=== PATIENT | female | born 1965 | race Caucasian/White ===

== ENCOUNTER 2022-05-21 05:40 | Inpatient (IN) ==
--- NOTE | 2022-05-03 15:53 | PAT Medication Instructions ---
Medication Instructions Date of Service May 03, 2022 Home Medications biotin 1 mg tablet 1 mg PO QAM lisinopril 20 mg tablet 20 mg PO HS DO NOT take the morning of surgery biotin 1 mg tablet 1 mg PO QAM Take evening before surgery lisinopril 20 mg tablet 20 mg PO HS Other Notes If you have any questions please call us at [phone] or [phone] or [phone] or [phone]
--- NOTE | 2022-05-06 15:04 | Anesthesiology Consultation ---
Date of Service May 06, 2022 Assessment & Plan (1) Encounter for pre-operative examination: Chart Review Chart Review: Acceptable Risk for Surgery and Patient seen in Pre Admission Testing Teaching & Discussion Pre-Anesthesia Teaching/Discussion Notes: Instructed NPO after midnight before surgery, except medications with 15 cc of water. Medication instructions provided according to the PAT guidelines. History Surgery Operation Date: 05/21/22 11:15 Proposed Procedures p Total Abdominal Hysterectomy, Bilateral Salpingo-Oophorectomy - Rufus Garcia MD Height/Weight Height: 5 ft 6 in Weight: 130.5 kg Allergies Allergy/AdvReac Type Severity Reaction Status Date / Time No Known Allergies Allergy Verified 05/03/22 08:10 Medications Home Medications Medication Instructions Recorded Confirmed Last Taken biotin 1 mg tablet 1 mg PO QAM 03/03/22 05/03/22 03/18/22 05:00 lisinopril 20 mg tablet 20 mg PO HS 03/03/22 05/03/22 03/18/22 17:30 Past Medical History Medical History (Updated 05/06/22 @ 15:30 by Suha Epps PA-C) History of blood transfusion 1993 History of COVID-19 07/2021- body aches, loss of taste of small; no hospitalization, no current issues Hypertension controlled, stable per pt Obesity Patient denies h/o stroke, seizures, heart attack, heart failure, DM, or blood clots. Exercise / Class Metabolic Activity III < 4 Walking/Shop/Light housework (denies CP or SOB with usual activities) Past Family History Family History Other No family history of adverse response to anesthesia Past Surgical History Surgical History Hx of colonoscopy Hx of dilation and curettage Hx of tooth extraction Hx of tubal ligation Hx of wisdom tooth extraction S/P cholecystectomy Past Anesthesia History No Hx of Anesthesia Complications and Other (sister slow to wake after anesthesia) History of PONV No Hx of PONV and Hx of Motion Sickness Social History Smoking Status: Never smoker Do You Dip or Chew Tobacco: No Hx Alcohol Use: No Hx Substance Use: No substance use type: does not use Review of Systems Snoring and witnessed apneas, denies testing. Patient denies chest pain, shortness of breath, dyspnea on exertion, reflux, fever, chills, cough, wheezing, or palpitations. Physical Exam Vital Signs Vitals BP 105/64 P 79 TEMP 98.1 SP02 99% on RA RESP 18 Physical Full cervical extension range of motion without pain TMD 3.5 finger breaths Mallampati Score 3 Dentition: intact, denies chipped or loose teeth, caps/crowns, implants or bridges Lungs: normal respiratory effort. Clear throughout to auscultation, no adventitious breath sounds Cardiac: regular rate and rhythm, no murmurs noted Carotid arteries: negative bruit bilat Lab Results Anesthesia Preop Results Results Anesthesia Widget: WBC 8.52 K/ul (4.8-10.8) 05/06/22 Hgb 13.5 g/dl (12.0-16.0) 05/06/22 Hct 39.6 % (34.1-44.9) 05/06/22 Plt 275 K/uL (130-400) 05/06/22 Na 140 mmol/L (136-145) 05/06/22 K 4.3 mmol/L (3.5-5.1) 05/06/22 Cl 104 mmol/L (98-107) 05/06/22 CO2 28 mmol/L (21-32) 05/06/22 BUN 27 mg/dl (6-23) H 05/06/22 Creat 0.86 mg/dl (0.6-1.2) 05/06/22 Glucose Level 95 mg/dl (70-99(Fasting)) 05/06/22 PT 10.0 Seconds (9.0-12.0) 05/06/22 PTT 28.8 Seconds (21.0-31.0) 05/06/22 INR 0.9 (0.9-1.1) 05/06/22 Blood Type A Negative 05/06/22 Antibody Screen NEGATIVE 05/06/22 Testing Electrocardiogram Date: 02/24/22 Sinus rhythm, rate 74 bpm COVID-19 Risk Screen Screening Information COVID-19 Screen Date: 05/06/22 Exposure 21 Days Family/Household +COVID Last 21 Days: No Exposure 10 Days Any COVID Exposure Last 10 Days: No Symptoms Last 10 Days Experienced COVID Sx Last 10 Days: No + COVID 0-90 Days COVID + in Last 0-90 Days: No
--- NOTE | 2022-05-17 11:04 | History and Physical Report ---
CHIEF COMPLAINT: Atypical adenomatous hyperplasia, endometrial intraepithelial neoplasia. HISTORY OF PRESENT ILLNESS: The patient is a 56-year-old 3, para 2, who has had 1 spontaneou s AB, had tubal ligation many years ago for control. General health is complicated by high blo od pressure. She has been on lisinopril 20 mg for over 10 years. She was recently evaluated for irr egular bleeding, which she has been experiencing for 10 years. She had a transvaginal ultrasound, wh ich showed a thickened endometrium and eventually she had an outpatient D and C on 03/19/2022. At th at time, the uterus sounded to 8 cm and pathological evaluation of the surgical specimen revealed aty pical endometrial hyperplasia with endometrial intraepithelial neoplasia. She is presently being armando eduled for a total abdominal hysterectomy, bilateral salpingo-oophorectomy. PAST MEDICAL HISTORY: She has 2 children in good health. ALLERGIES: She has no known drug allergies. PAST SURGICAL HISTORY: She has had two D and C's. She has had her gallbladder removed. She had tub al ligation. MEDICAL HISTORY: She is on high blood pressure meds for over 10 years. SOCIAL HISTORY: No smoking, no excessive alcohol intake. Works in [employer]. FAMILY HISTORY: Mom at age 80 of complications of diabetes and leukemia. Father at age 69 of myocardial infarction. Two brothers and two sisters, one sister is diabetic and all of her broth ers and sisters have arthritis and high blood pressure. REVIEW OF SYSTEM: HEAD: No symptoms of frequent or severe headaches. EYES: No symptoms of blurred vision or double vision. EARS: No symptoms of frequent ear infection or difficulty hearing. NOSE: No symptoms of frequent nosebleeds or difficulty breathing through her nose. THROAT: No symptoms of frequent or severe sore throat or difficulty swallowing. RESPIRATORY SYSTEM: No history of asthma, chest pain, or shortness of breath. PHYSICAL EXAMINATION: GENERAL: Well-developed, well-nourished 56-year-old white female, alert, oriented x3 and cooperative , in no acute distress, appeared her stated age. EYES: Conjunctivae pink. Sclerae white, no evidence of jaundice. ENT: Ears had normal light reflex bilaterally. Nose had normal mucosa. Septum is midline. There w ere no polyps. THROAT: No erythema or evidence of infection. Teeth are in good state of repair. HEAD: Normocephalic, normal distribution of hair. NECK: Supple. Trachea midline. Thyroid is not enlarged. There is no adenopathy appreciated. Both carotids are of good intensity. CHEST: Clear to auscultation and percussion. No wheezes, rales or rhonchi appreciated. HEART: Had regular rhythm. S1 and S2 are normal. BREASTS: Normal. ABDOMEN: Soft and nontender. PELVIC: Revealed a normal-appearing cervix. Uterus was top normal size. There are no adnexal alfie s appreciated. MUSCULOSKELETAL: Revealed no calf tenderness. IMPRESSION OF THIS CASE: Status post dilation and curretage x2, status post cholecystectomy, status post tubal ligation and endometrial intraepithelial neoplasia. Job ID: [id number]
[~2022-05-21 05:40] MED LIST: General Order Problem(s) SCH
[2022-05-21] MEDS ORDERED: cefOXitin 2,000 MG in DEXTROSE 5% 50 ML IV SCH (06:00)
[2022-05-21] MEDS ORDERED: LR 15ML/HR IV SCH (06:00)
[2022-05-21] MEDS ORDERED: LACTATED RINGER'S 1,000 ML IV SCH (06:00)
[2022-05-21] MEDS ORDERED: MIDAZOLAM HCL 1 MG/ML 2ML VIAL ONE (06:46)
[2022-05-21] MEDS ORDERED: NEOSTIGMINE METHYLSULFATE 1 MG/ML 10ML VIAL ONE (06:46)
[2022-05-21] MEDS ORDERED: PROPOFOL IV EMULSION 10 MG/ML 20 ML VIAL IV ONE (06:46)
[2022-05-21] MEDS ORDERED: GLYCOPYRROLATE 0.2 MG/ML VIAL ONE (06:46)
[2022-05-21] MEDS ORDERED: DEXAMETHASONE SOD INJ 4 MG/ML VIAL ONE (06:46)
[2022-05-21] MEDS ORDERED: ONDANSETRON INJ 2 MG/ML 2 ML VIAL ONE ×2 (06:46→08:57)
[2022-05-21] MEDS ORDERED: fentaNYL citrate 100 MCG/2 ML VIAL ONE (06:46)
[2022-05-21] MEDS ORDERED: ROCURONIUM BROMIDE 10 MG/ML 5 ML VIAL IV ONE ×5 (06:47→08:56)
[2022-05-21] MEDS ORDERED: LIDOCAINE 2% MPF LOCAL 5 ML VIAL INFIL ONE (06:48)
[2022-05-21] MEDS ORDERED: SUGAMMADEX SODIUM 200 MG/2 ML VIAL IV ONE (07:04)
[2022-05-21] MEDS ORDERED: ACETAMINOPHEN 1000 MG/100 ML IV IV ONE (07:04)
[2022-05-21] MEDS ORDERED: SCOPOLAMINE 1 MG TDSY TD ONE ×2 (07:07→07:09)
[2022-05-21] MEDS ORDERED: MEPERIDINE HCL 25 MG/ML CARP/VIAL IV PRN (07:10)
[2022-05-21] MEDS ORDERED: LABETALOL HCL IV 5 MG/ML 20ML IV PRN (07:10)
[2022-05-21] MEDS ORDERED: ATROPINE SULFATE 0.1 MG/ML 10ML SYR IV PRN (07:10)
[2022-05-21] MEDS ORDERED: MoRPHine SULFATE PF 1 MG/ML 10 ML AMP/VIAL ONE (07:10)
[2022-05-21] MEDS ORDERED: PHENYLEPHRINE 100MCG/ML 5ML SYR IV PRN (07:10)
[2022-05-21] MEDS ORDERED: HYDROmorphone INJ 1 MG/ML SYRINGE IV PRN (07:10)
[2022-05-21] MEDS ORDERED: ONDANSETRON INJ 2 MG/ML 2 ML VIAL IV PRN ×2 (07:10→17:24)
[2022-05-21] MEDS ORDERED: ePHEDrine sulfate 50 MG/ML AMP IV PRN ×2 (07:10→07:29)
[2022-05-21] MEDS ORDERED: fentaNYL citrate 100 MCG/2 ML VIAL IV PRN (07:10)
--- NOTE | 2022-05-21 07:22 | History & Physical Bridge Note ---
Date of Service May 21, 2022 History & Physical Bridge Note I have examined the patient, reviewed the History & Physical and in the interval since the performance of the History & Physical I have noted the following changes of clinical significance: no changes noted
[2022-05-21] MEDS ORDERED: NALOXONE HCL 0.08 MG in SYRINGE 1.8 ML IV PRN (07:29)
[2022-05-21] MEDS ORDERED: NALOXONE HCL 1 MG in SODIUM CHLORIDE 0.9% 1000ML 1,000 ML IV PRN (07:29)
[2022-05-21] MEDS ORDERED: LACTATED RINGER'S 500 ML IV PRN (07:29)
[2022-05-21] MEDS ORDERED: diphenhydrAMINE 50 MG/ML VIAL IV PRN (07:29)
[2022-05-21] MEDS ORDERED: NALBUPHINE HCL INJ 10 MG/ML AMP IV PRN (07:29)
[2022-05-21] MEDS ORDERED: NALOXONE HCL 0.4 MG/1 ML VIAL/CARP IV PRN (07:29)
[2022-05-21] MEDS ORDERED: MoRPHine SULFATE PF 1 MG/ML 10 ML AMP/VIAL INT SPINAL ONE (07:29)
[2022-05-21] MEDS ORDERED: SODIUM CHLORIDE 0.9% 1000ML 1,000 ML IV SCH (07:30)
[2022-05-21] MEDS ORDERED: DC INTRASPINAL MORPHINE SCH (07:30)
[2022-05-21] MEDS ORDERED: NO NARCOTICS OR SEDATIVES SCH (07:30)
[2022-05-21] MEDS ORDERED: HEPARIN (PORCINE) 1000 UNIT/ML 10 ML (CATH LAB USE ONLY) ONE (07:57)
[2022-05-21] MEDS ORDERED: PHENYLEPHRINE HCL 10 MG/ML VIAL ONE (08:57)
[2022-05-21] MEDS ORDERED: PHENYLEPHRINE 100MCG/ML 5ML SYR ONE (08:57)
--- NOTE | 2022-05-21 10:28 | Post Operative Brief Note ---
Immediate Post Op Note v1 Date of Surgery May 21, 2022 Pre & Post Diagnosis Operation Date: 05/21/22 07:30 Pre-Op Diagnosis: Atypical adenomatous hyperplasia, endometrial intraepithelial neoplasia Post-Op Diagnosis: Atypical adenomatous hyperplasia, endometrial intraepithelial neoplasia I identified the patient and participated in the time-out.: Yes Procedure Operation Date: 05/21/22 07:30 Actual Procedures p Total Abdominal Hysterectomy, Bilateral Salpingo-Oophorectomy - Rufus Garcia MD Surgeon Rufus Garcia MD [employer] In[employer] Nesha Estimated Blood Loss 120 Findings Consistent with Post-Op Diagnosis Drains Johnson Catheter (david drain vaginal cuff) Anesthesia Type General Complications none
--- NOTE | 2022-05-21 11:06 | Operative Report (OR) ---
PROCEDURE: Total abdominal hysterectomy, bilateral salpingo-oophorectomy. INDICATIONS FOR SURGERY: Long history of irregular vaginal bleeding. PREOPERATIVE DIAGNOSIS: Atypical adenomatous hyperplasia on previous D and C specimen. POSTOPERATIVE DIAGNOSIS: Atypical adenomatous hyperplasia on previous D and C specimen. Pathology p ending. SURGEON: Bo Garcia MD. CERTIFIED PESTICIDE APPLICATOR: Christopher Jeffries MD. ESTIMATED BLOOD LOSS: 120 mL. ANESTHESIA: General with spinal narcotics. OPERATIVE FINDINGS AND PROCEDURE: The patient was brought to the OR table, correctly identified by a rmband and conversation. Spinal narcotics were administered and then the patient was given general a nesthesia. Lower abdomen up to the umbilicus was prepped with an alcohol based sterilizing solution and draped in the usual sterile fashion. Due to the patient's weight, we decided to make a midline i ncision, made a midline incision and carried it down to the anterior fascia by sharp dissection. Hem ostasis was secured by electrocauterization. Fascia was incised in the midline, exposing the rectus muscle and peritoneum, which was carefully raised and entered. The peritoneum was incised down to th e bladder dome and up towards the umbilicus and then because of the patient's weight, we used a Bookw alter retractor with about 5 retractors connected to it to provide adequate exposure of the pelvic ca vity. Each tube appeared to be normal, status post tubal ligation with a tubal ring. The fundus of the uterus was grasped with a double tooth tenaculum. The round ligaments on either side were clampe d close to the uterus and then ligated distally with a tag and also distal to that a silk suture for hemostasis. We then identified the infundibulopelvic ligaments on either side, which supplied blood to the ovary and basically doubly ligated those. I then cut the round ligaments, made an incision ab ove the vesicouterine fold, advanced the bladder out of the operative field, punched through the post erior leaf of the broad ligament bluntly and then cut the ovaries away from the lateral pelvic wall w ith a Annette on the fundus of the uterus on either side for hemostasis. We then doubly ligated the ut erine vessels on either side with a curved Chevy, cut with a stump and then doubly ligated with a ch romic gut suture. We advanced the bladder out of the operative field. We used a curved Chevy to sli de off the cervix and then cut with a stump to cut the cardinal ligaments, which supported the cervix . This was done in 3 steps because of the length of the cervix. After that, the cervix was entered by electrocauterization. The vaginal cuff was entered. The surgical specimen was removed, consistin g of uterus, cervix, tubes, and ovaries. Attention was then turned to the vaginal cuff. Angles of th e cuff were suture ligated to the stumps of the cardinal ligaments on either side with a chromic gut suture. Then, the angles of the vaginal cuff were approximated front to back anchoring them in the d istal portion of the cardinal ligaments. Then, the mid portion of the vaginal cuff was whipstitched open with a continuous chromic gut suture. Hemostasis was excellent. [place] drain with a safety pi n was placed into the vagina, the end into the cul-de-sac. I then brought the round ligaments down a nd tied them to the stumps of the cardinal ligaments for support and reperitonealized with a continuo us chromic gut suture from the right side down to the middle of the cuff and from the left side down to the middle of the cuff covering up all raw areas and then tied the 2 sutures together. We washed the pelvis clean. Hemostasis was good. We removed all packs, did a careful anatomical approximation of the anterior abdominal wall, sutured the peritoneum with a mattress suture of chromic catgut. Th en, the peritoneum was closed with a heavy PDS from the top down to the middle and from the bottom up to the middle and then tied to each other. I then used two layers of plain suture to approximate th e subcutaneous, a deep suture of running plain and then a more superficial suture of interrupted plai n. Skin edges were then approximated with staple clips. The patient tolerated the procedure well an d left the OR in good condition. Job ID: [id number]
--- NOTE | 2022-05-21 11:30 | Anesthesiology Progress Note ---
Date of Service May 21, 2022 Anesthesia Post Procedure Vital Signs Vital Signs: Temp Pulse Pulse Resp BP Pulse Ox O2 Del Method 05/21/22 10:50 83 18 122/76 95 Oxymask 05/21/22 11:20 36.3 C L 85 18 120/78 95 Nasal Cannula 05/21/22 11:10 90 18 121/79 94 Nasal Cannula 05/21/22 11:00 85 20 121/73 97 Oxymask 05/21/22 10:40 93 H 20 119/79 94 Oxymask 05/21/22 10:33 36.6 C 96 H 16 108/86 94 Oxymask 05/21/22 06:00 36.5 C 80 20 134/79 98 Room Air O2 Flow Rate 05/21/22 10:50 4 05/21/22 11:20 2 05/21/22 11:10 2 05/21/22 11:00 4 05/21/22 10:40 6 05/21/22 10:33 8 05/21/22 06:00 Transfer of Care Handoff Completed per policy Notes Mental Status: alert / awake / arousable Patient Amnestic to Procedure: Yes Nausea / Vomiting: adequately controlled Pain: adequately controlled Airway Patency, RR, SpO2: stable & adequate BP & HR: stable & adequate Hydration State: stable & adequate Neuraxial Anesthesia: was administered and sensory block is resolving Anesthetic Complications: no major complications apparent and Pt Satisfied with anesthetic care
[2022-05-21] MEDS ORDERED: CHECK SCOPOLAMINE PATCH PLACEMENT SCH (16:00)
[2022-05-21] MEDS ORDERED: bisacodyL 10 MG SUPP PR PRN (17:24)
[2022-05-21] MEDS ORDERED: MAGNESIUM HYDROXIDE SUSP 30 ML UDC PO PRN (17:24)
[2022-05-21] MEDS ORDERED: PROMETHAZINE HCL 25 MG in SODIUM CHLORIDE 0.9% 50 ML IV PRN (17:24)
[2022-05-21] MEDS ORDERED: MEPERIDINE HCL 50 MG/ML CARP IV PRN (17:24)
[2022-05-21] MEDS ORDERED: KETOROLAC 30 MG/ML VIAL IV PRN (17:24)
[2022-05-21] MEDS ORDERED: SENNA 8.6 MG TAB PO PRN (17:24)
[2022-05-21] MEDS: D5W AND LACTATED RINGERS 1,000 ML IV SCH (18:27)
[2022-05-21] MEDS: HEPARIN SOD 5,000 UNIT/0.5 ML VIAL SQ SCH (21:11)
[2022-05-21] MEDS: lisinopril 20 MG TAB PO SCH (21:12)
[2022-05-22] MEDS: D5W AND LACTATED RINGERS 1,000 ML IV SCH (03:06)
[2022-05-22] MEDS: IBUPROFEN 600 MG TAB PO PRN ×3 (06:28→21:13)
[2022-05-22 06:40] LABS: Hematocrit (blood only) 36.4 % (34.1-44.9); Hemoglobin 12.3 g/dl (12.0-16.0)
--- NOTE | 2022-05-22 08:20 | Obstetrical Progress Note ---
Date of Service May 22, 2022 Assessment & Plan Admission and Anticipated Discharge Date Admission Date: May 21, 2022 Subjective abdomen soft and non tender bowel sounds present passing flatus no calf tenderness ambulating well vaginal bleeding scant hgb 12.3 Results & Data ([facility]) Vital Signs (Past 12 Hours) Vital Signs Temp Pulse Resp BP Pulse Ox O2 Del Method 05/22/22 02:45 37.1 C 88 16 105/78 93 Room Air 05/22/22 02:00 18 94 05/22/22 01:00 18 92 05/22/22 00:00 16 94 05/21/22 23:30 36.7 C 80 16 106/62 93 Room Air 05/21/22 23:00 16 92 05/21/22 22:00 18 93 05/21/22 21:00 16 94
[2022-05-22] MEDS: HEPARIN SOD 5,000 UNIT/0.5 ML VIAL SQ SCH ×2 (10:14→21:32)
[2022-05-22] MEDS: oxyCODONE/ACETAMINOPHEN 5mg/325mg TAB PO PRN (21:14)
[2022-05-22] MEDS: lisinopril 20 MG TAB PO SCH (21:15)
[2022-05-23] MEDS: IBUPROFEN 600 MG TAB PO PRN ×4 (01:32→15:01)
[2022-05-23] MEDS: oxyCODONE/ACETAMINOPHEN 5mg/325mg TAB PO PRN ×3 (01:33→15:00)
--- NOTE | 2022-05-23 07:36 | Obstetrical Progress Note ---
Date of Service May 23, 2022 Assessment & Plan Admission and Anticipated Discharge Date Admission Date: May 21, 2022 Subjective abdomen soft and non tender incision is clean and dry passing flatus no calf tenderness ambulating well vaginal bleeding scant hgb 12.3 Results & Data ([facility]) Vital Signs (Past 12 Hours) Vital Signs Temp Pulse Resp BP Pulse Ox O2 Del Method 05/23/22 00:30 36.5 C 77 18 117/64 95 Room Air 05/22/22 21:15 36.5 C 75 18 133/68 93 Room Air
--- NOTE | 2022-05-23 08:43 | Discharge Summary (DS) ---
DATE OF SERVICE: 05/23/2022 HOSPITAL COURSE: She is a 56-year-old female who had a long history of irregular vaginal bleeding, B [place] of over 47. She was admitted for an outpatient D and C, prior to this admission at which time she had one focus of atypical adenomatous hyperplasia on this curettings and she was admitted for total abdominal hysterectomy, bilateral salpingo-oophorectomy. On the day of admission, she was taken to [facility] OR. She was given prophylactic antibiotics. She underwent total abdominal hysterectomy, bilatera l salpingo-oophorectomy, suspension of the vaginal cuff. Surgery was done with minimal blood loss. S he was given heparin 5000 units q.12 hours as DVT prophylaxis along with compression stockings. Post operatively, she did well. Her bowel sounds returned within 24 hours. Her dressing was removed, the following day. The incision was clean and dry. The second postoperative day, she was ambulating we ll, eating well. Her hemoglobin was good at 12.3. She had good bowel sounds and her pain was well c ontrolled with a combination of Percocet and Motrin. A [place] drain with a safety pin was removed f rom the vaginal cuff. Bleeding was minimal and she was discharged to be followed in home and office, to return in a week for removal of simone and to call if she had a temperature over 100 or any heav y vaginal bleeding. Job ID: [id number]
[2022-05-23] MEDS: HEPARIN SOD 5,000 UNIT/0.5 ML VIAL SQ SCH (09:19)
== END 2022-05-23 15:05 | disposition home or self-care (01) | DRG 743 ==
LOC: ASU 05:40 → 4E1 10:45